=== PATIENT | female | born 1945 | race Caucasian/White ===

== ENCOUNTER → 2019-02-15 13:53 | Outpatient (CLI) | payer MEDICARE, OTHER, SELFPAY ==
--- NOTE | 2019-02-15 | DI.US.S_ITS ---
PROCEDURE: US CAROTID DOPPLER BI INDICATIONS: BILATERAL CAROTID ARTERY STENOSIS TECHNIQUE: Color and pulse Doppler interrogation was performed of both carotid systems, with image documentation and velocity measurements. COMPARISON: None. FINDINGS: Stenosis calculations are based on SRU (Society of Radiologists in Ultrasound) criteria. Right side: Brachial blood pressure: 150/86 mm Hg. Common carotid artery peak systolic velocity: 65 cm/sec. Internal carotid artery peak systolic velocity: 77 cm/sec. Internal carotid artery end diastolic velocity: 35 cm/sec. External carotid artery peak systolic velocity: 91 cm/sec. ICA/CCA peak systolic ratio: 1.2. Fraire scale imaging description: Mild scattered plaque. Percent internal carotid artery stenosis: Less than 50%. Vertebral artery: Flow direction is antegrade. Left side: Brachial blood pressure: 137/88 mm Hg. Common carotid artery peak systolic velocity: 61 cm/sec. Internal carotid artery peak systolic velocity: 95 cm/sec. Internal carotid artery end diastolic velocity: 38 cm/sec. External carotid artery peak systolic velocity: 54 cm/sec. ICA/CCA peak systolic ratio: 1.6. Fraire scale imaging description: Moderate scattered plaque. Percent internal carotid artery stenosis: Less than 50% Vertebral artery: Flow direction is antegrade. IMPRESSION: Less than 50% bilateral internal carotid artery stenosis. Dictated by: Dong Bonner [facility] Interpreted: Alicia Ken MD on 02/15/2019 at 16:34 Approved by: Alicia Ken M.D. on 02/15/2019 at 16:50
== END ==
PROVIDERS: Visit Provider Internal Medicine Cardiovascular Disease
DX: I65.23 Occlusion and stenosis of bilateral carotid arteries (principal)
CPT/HCPCS: 93880

== ENCOUNTER → 2020-04-17 10:44 | Outpatient (CLI) | payer MEDICARE, OTHER, SELFPAY ==
[2020-04-17 11:54] LABS: COVID19 -Nasal RAPID Negative (Negative)
== END ==
PROVIDERS: PCP Nurse Practitioner Family; Referring Provider Internal Medicine; Visit Provider Internal Medicine
DX: Z11.59 Encounter for screening for other viral diseases (principal)
CPT/HCPCS: 87635; C9803

== ENCOUNTER → 2020-04-17 12:39 | Outpatient (CLI) | payer MEDICARE, OTHER, SELFPAY ==
--- NOTE | 2020-04-21 08:14 | P.PFT.S_ITS ---
Pulmonary Function Test Referral & Results Date Patient Seen: 04/17/20 Requesting provider: Katia Daugherty Results: The spirometry demonstrates an FVC of 3.17 L which is 107% of predicted. The FEV1 was measured at 2.34 L which is 106% of predicted. The FEV1/FVC ratio was 74 which is 98% of predicted. Following the administration of bronchodilator there was 15% improvement in FEV1 and a 90% improvement in FEF 25-75%. Lung volumes show an SVC of 3.11 L which is 108% of predicted. The diffusing capacity was measured at 17.75 which is 69% of predicted. No hemoglobin value was provided, so no correction for potential anemia could be made, if appropriate. The maximum voluntary ventilation was reduced Interpretation: This study demonstrates probably normal spirometry. There is a notable im provement in FEV1 and FEF 25-75% after bronchodilator but overall spirometry should be considered normal Diffusing capacity is minimally reduced as above unless patient is anemic Clinical correlation suggested
== END ==
PROVIDERS: PCP Nurse Practitioner Family; Referring Provider Internal Medicine Cardiovascular Disease; Visit Provider Internal Medicine Cardiovascular Disease
DX: R06.02 Shortness of breath (principal); J98.8 Other specified respiratory disorders; Z87.891 Personal history of nicotine dependence; I77.89 Other specified disorders of arteries and arterioles; Z11.59 Encounter for screening for other viral diseases
CPT/HCPCS: 87635; 93306; 94060; 94726; 94729; C9803

== ENCOUNTER → 2020-04-17 14:46 | Outpatient (CLI) | payer MEDICARE, OTHER, SELFPAY ==
--- NOTE | 2020-04-17 | DI.ECHO.S_ITS ---
[place] +---------+ [facility] +---------+ : : [address] [place] : : : : [id number] : : : : Phone: [phone]+ Echocardiogram Report + + :Name: LEANN GREEN Study Date: 04/17/2020 Height: 65 in : :[facility] Weight: 152 lb : : Gender: Female BSA: 1.8 m2 : :: 1945 Age: 74 yrs BP: 162/85 mmHg: :Reason For Study: SOB : : Performed By: Harshil Quinteros : :Referring: LIZZIE SYED : + + Interpretation Summary The left ventricle is normal in size. The ejection fraction is estimated to be 55-60%. Compared to the prior exam, the left ventricular function is improved. The right ventricle is normal in size and function. No significant valvular pathology seen. The ascending aorta is mildly enlarged. There has been no significant change since the previous study. Procedure: A two-dimensional transthoracic echocardiogram with color flow and Doppler was performed. The study quality was technically good. Comparison is made with the echocardiogram of 04/23/13. The patient was in normal sinus rhythm during the exam. The patient had frequent PVCs during the exam. The patient had occasional PACs during the exam. Left Ventricle: The left ventricle is normal in size. There is normal left ventricular wall thickness. There is no thrombus. The ejection fraction is estimated to be 55-60%. Compared to the prior exam, the left ventricular function is improved. There is proximal mid posteriolateral wall hypokinesis. There is apical lateral wall hypokinesis. There is mid anterolateral wall hypokinesis. Compared to the prior exam, the left ventricular wall motion has not changed. MV E/A: 1.0 Med Peak E' David: 3.6 cm/sec E/E' med: 21.6. Right Ventricle: The right ventricle is normal in size and function. Atria: The left atrium is mildly dilated. The right atrium is normal in size. The interatrial septum grossly appears intact with no obvious evidence for an atrial septal defect. Mitral Valve: The mitral valve is normal in structure and function. There is trace mitral regurgitation. Aortic Valve: The aortic valve is trileaflet. The aortic valve opens well. There is no aortic valve stenosis. No aortic regurgitation is present. Tricuspid Valve: The tricuspid valve is normal in structure and function. There is trace tricuspid regurgitation. The right ventricular systolic pressure is estimated to be at least 32 mmHg based on an estimated right atrial pressure of 3 mm Hg. Pulmonic Valve: The pulmonic valve leaflets are thin and pliable; valve motion is normal. There is trace pulmonic regurgitation. Great Vessels: The aortic root is normal size. The ascending aorta is mildly enlarged. There has been no significant change since the previous study. The pulmonary artery is normal size. The IVC is of normal diameter and collapses greater than 50% with a sniff. This suggests a low right atrial pressure of 3 mm Hg. Pericardium/ Pleura There is no pericardial effusion. There is no pleural effusion. MMode/2D Measurements & Calculations LVIDd: 5.5 cm LVOT diam: 1.9 cm LVIDs: 3.7 cm Ao root diam: 2.4 cm FS: 33.3 % asc Aorta Diam: 3.8 cm EPSS: 0.68 cm Ao Arch Diam (Prox Trans): 2.7 cm IVSd: 0.96 cm LVPWd: 0.90 cm LV mac. diameter/BSA (cm/m^2): 3.1 LV sys. diameter/BSA (cm/m^2): 2.1 LA dimension: 3.8 cm RA long axis: 4.2 cm LA A2 area: 20.6 cm2 RA area: 15.0 cm2 LA A4 area: 21.9 cm2 RA vol: 45.7 ml LA length (vol): 6.2 cm RA : 25.9 ml/m2 LA vol: 62.3 ml IVC diam: 1.6 cm LA vol index: 35.4 ml/m2 TAPSE: 2.5 cm Doppler Measurements & Calculations Ao V2 max: 199.7 cm/sec LVOT Max David: 128.0 cm/sec Ao V2 mean: 136.1 cm/sec LV V1 max P.6 mmHg Ao max P.9 mmHg LV V1 VTI: 29.2 cm Ao mean P.3 mmHg KAILA(I,D): 2.0 cm2 Ao V2 VTI: 39.9 cm KAILA(V,D): 1.8 cm2 sev ratio: 0.73 KAILA indexed to BSA (cm^2/m^2): 1.2 MV E max david: 77.4 cm/sec TR max david: 269.9 cm/sec MV A max david: 75.1 cm/sec TR max P.1 mmHg MV E/A: 1.0 PA V2 max: 91.8 cm/sec Med Peak E' David: 3.6 cm/sec PA V2 mean: 71.1 cm/sec E/E' med: 21.6 PA mean P.1 mmHg Lat Peak E' David: 4.9 cm/sec PA pr(Accel): 32.8 mmHg E/E' lat: 15.6 E/e' average: 18.6 MV dec time: 0.21 sec SV(LVOT): 81.8 ml Reading Physician:11:55 AM
== END ==
PROVIDERS: PCP Nurse Practitioner Family; Referring Provider Nurse Practitioner Family; Visit Provider Internal Medicine Cardiovascular Disease
DX: I77.89 Other specified disorders of arteries and arterioles (principal); R06.02 Shortness of breath; Z11.59 Encounter for screening for other viral diseases
CPT/HCPCS: 87635; 93306; C9803

== ENCOUNTER → 2021-09-17 14:12 | Outpatient (CLI) | payer MEDICARE, OTHER, SELFPAY ==
--- NOTE | 2021-09-17 14:15 | DI.ECHO.S_ITS ---
[place] +---------+ [facility] +---------+ : : [address] [place] : : : : [id number] : : : : Phone: [phone]+ Echocardiogram Report + + :Name: LEANN GREEN Study Date: 09/17/2021 Height: 64 in : :[facility] ReadingLocation: Weight: 147 lb : : Gender: Female BSA: 1.7 m2 : :: 1945 Age: 76 yrs BP: 152/96 mmHg: :Reason For Study: Aortic, Ascending Aneurysm : :Ordering Physician: YAHAIRA, : :LIZZIE Performed By: Leland Gross : :Referring: LIZZIE SYED : + + Interpretation Summary The left ventricle is normal in size. Left ventricular systolic function is normal. Left ventricular ejection fraction is estimated to be 60 +/- 5%. Previous LV ejection fraction 55 to 60%. In some of the apical views, there is a hypokinesis of apical lateral wall however overall no significant wall motion abnormalities seen. Previously seen base to mid posterior lateral wall abnormalities have improved. The right ventricle is normal in size and function. No significant valvular abnormalities seen. The IVC is of normal diameter and collapses greater than 50% with a sniff. This suggests a low right atrial pressure of 3 mm Hg. The ascending aorta is mildly enlarged. 3.8 cm in diameter. Previously it was 3.8 cm as well. Procedure: A two-dimensional transthoracic echocardiogram with color flow and Doppler was performed. The study quality was technically difficult. Comparison is made with the echocardiogram of 04/17/2020. The patient was in normal sinus rhythm during the exam. Left Ventricle: The left ventricle is normal in size. There is normal left ventricular wall thickness. There is no thrombus. A false chord is noted (normal variant). Left ventricular systolic function is normal. Left ventricular ejection fraction is estimated to be 60 +/- 5%. In some of the apical views, there is a hypokinesis of apical lateral wall however overall no significant wall motion abnormality seen. Previously seen base to mid posterior lateral wall abnormalities have improved. MV E/A: 0.79 Med Peak E' David: 4.1 cm/sec E/E' med: 15.8. Right Ventricle: The right ventricle is normal in size and function. Atria: The left atrial size is normal. The left atrium has mildly decreased in size since the prior echo exam. Right atrial size is normal. The interatrial septum grossly appears intact with no obvious evidence for an atrial septal defect. Mitral Valve: The mitral valve is normal in structure and function. There is trace mitral regurgitation. Aortic Valve: The aortic valve is normal in structure and function. The aortic valve is trileaflet. There is no aortic valve stenosis. No aortic regurgitation is present. Tricuspid Valve: The tricuspid valve is normal in structure and function. Pulmonary artery pressures cannot be estimated because of the lack of a measurable TR jet velocity. There is trace tricuspid regurgitation. Pulmonic Valve: The pulmonic valve is normal in structure and function. There is a trace or physiologic amount of pulmonic regurgitation. Great Vessels: The aortic root is normal size. The ascending aorta is mildly enlarged. The IVC is of normal diameter and collapses greater than 50% with a sniff. This suggests a low right atrial pressure of 3 mm Hg. Pericardium/ Pleura There is no pericardial effusion. There is no pleural effusion. MMode/2D Measurements & Calculations LVIDd: 5.1 cm LVOT diam: 1.7 cm LVIDs: 3.5 cm Ao root diam: 2.5 cm FS: 30.8 % asc Aorta Diam: 3.7 cm IVSd: 1.0 cm LVPWd: 1.0 cm LV mac. diameter/BSA (cm/m^2): 3.0 LV sys. diameter/BSA (cm/m^2): 2.0 LA A4 area: 18.2 cm2 RA long axis: 4.9 cm LA length (vol): 5.7 cm RA area: 14.4 cm2 RA vol: 35.6 ml RA : 20.8 ml/m2 TAPSE: 2.8 cm Doppler Measurements & Calculations Ao V2 max: 170.2 cm/sec LVOT Max David: 106.6 cm/sec Ao V2 mean: 112.4 cm/sec LV V1 max P.5 mmHg Ao max P.6 mmHg LV V1 VTI: 23.5 cm Ao mean P.9 mmHg KAILA(I,D): 1.6 cm2 Ao V2 VTI: 33.4 cm KAILA(V,D): 1.4 cm2 sev ratio: 0.70 KAILA indexed to BSA (cm^2/m^2): 0.93 MV E max david: 65.0 cm/sec SV(LVOT): 53.4 ml MV A max david: 82.0 cm/sec MV E/A: 0.79 Med Peak E' David: 4.1 cm/sec E/E' med: 15.8 Lat Peak E' David: 12.5 cm/sec E/E' lat: 5.2 E/e' average: 10.5 MV dec time: 0.23 sec Reading Physician:06:43 PM
== END ==
PROVIDERS: PCP Specialist; Referring Provider Internal Medicine Cardiovascular Disease; Visit Provider Internal Medicine Cardiovascular Disease
DX: I77.810 Thoracic aortic ectasia (principal); I77.89 Other specified disorders of arteries and arterioles
CPT/HCPCS: 93306

== ENCOUNTER → 2024-04-05 11:08 | Outpatient (CLI) | payer MEDICARE, OTHER, SELFPAY ==
--- NOTE | 2024-04-05 11:11 | DI.US.S_ITS ---
PROCEDURE: US CAROTID DOPPLER BI INDICATIONS: BILAT CAROTID ARTERY STENOSIS / SOB TECHNIQUE: Color and pulse Doppler interrogation was performed of both carotid systems, with image documentation and velocity measurements. COMPARISON: US, US CAROTID DOPPLER BI, 02/15/2019, 14:40. FINDINGS: Stenosis calculations are based on SRU (Society of Radiologists in Ultrasound) criteria. The flow velocities and the arterial waveforms are normal within both carotid arterial systems. Atherosclerotic plaque is seen on both sides. The estimated degree of internal carotid artery stenosis is less than 50%. Antegrade flow is confirmed within both vertebral arteries. IMPRESSION: No hemodynamically significant stenosis is seen. Atherosclerotic plaque is noted bilaterally. Similar to prior. Dictated by: Scooter Aly M.D. on 04/05/2024 at 11:36 Approved by: Scooter Aly M.D. on 04/05/2024 at 11:37
--- NOTE | 2024-04-05 11:11 | DI.ECHO.S_ITS ---
[place] +---------+ Hospital : : [address] : : [place] : : [id number] : : Phone: [phone] Echocardiogram Report + + :Name: LEANN GREEN Study Date: 04/05/2024 Height: 64 in : :[facility] ReadingLocation: Weight: 147 lb : : Gender: Female BSA: 1.7 m2 : :: 1945 Age: 78 yrs BP: 140/87 mmHg: :Reason For Study: BILATERAL CAROTID ARTERY STENOSIS, SHORTNESS : :OF BREATH : :Ordering Physician: YAHAIRA, : :LIZZIE Performed By: Sukh Jackson : :Referring: LIZZIE SYED : + + Interpretation Summary The left ventricle is normal in size. The ejection fraction is estimated to be 50-55%. There has been no significant change in LVEF since the previous exam. Mid anterolateral wall and mid inferolateral wall are severely hypokinetic. No significant change from the previous study. The right ventricle is normal in size and function. There is mild tricuspid regurgitation. The right ventricular systolic pressure is estimated to be at least 38 mmHg based on an estimated right atrial pressure of 3 mm Hg. The ascending aorta is mildly enlarged. 4.0 cm in diameter. Previously 3.8 cm. Procedure: A two-dimensional transthoracic echocardiogram with color flow and Doppler was performed. The study quality was technically good. Comparison is made with the echocardiogram of 10/18/2023. The patient was in normal sinus rhythm during the exam. The patient had occasional PVCs during the exam. Left Ventricle: The left ventricle is normal in size. Left ventricular wall thickness is mildly increased. There is no thrombus. The ejection fraction is estimated to be 50-55%. There has been no significant change since the previous exam. Mid anterolateral wall and mid inferolateral wall are severely hypokinetic. No significant change from the previous study. MV E/A: 0.64 Med Peak E' David: 3.3 cm/sec E/E' med: 16.6. Right Ventricle: The right ventricle is normal in size and function. Atria: The left atrium is mildly dilated. The left atrium has mildly increased in size since the prior echo exam. The right atrium is borderline dilated. There is no Doppler evidence for an atrial septal defect. Mitral Valve: There is mild mitral annular calcification. There is trace mitral regurgitation. Aortic Valve: The aortic valve is trileaflet. The aortic valve opens well. There is no aortic valve stenosis. No aortic regurgitation is present. Tricuspid Valve: The tricuspid valve is normal. The right ventricular systolic pressure is estimated to be at least 38 mmHg based on an estimated right atrial pressure of 3 mm Hg. There is mild tricuspid regurgitation. Pulmonic Valve: The pulmonic valve is normal in structure and function. There is no pulmonic valvular regurgitation. Great Vessels: The aortic root is normal size. The ascending aorta is mildly enlarged. The pulmonary artery is normal size. The IVC is of normal diameter and collapses greater than 50% with a sniff. This suggests a low right atrial pressure of 3 mm Hg. Pericardium/ Pleura There is no pericardial effusion. There is no pleural effusion. MMode/2D Measurements & Calculations LVIDd: 4.8 cm LVOT diam: 1.8 cm LVIDs: 3.5 cm Ao root diam: 2.6 cm FS: 27.6 % asc Aorta Diam: 4.0 cm EPSS: 0.62 cm Ao Arch Diam (Prox Trans): 2.4 cm IVSd: 1.2 cm LVPWd: 1.2 cm LV mac. diameter/BSA (cm/m^2): 2.8 LV sys. diameter/BSA (cm/m^2): 2.0 LA A2 area: 25.4 cm2 RA long axis: 4.5 cm LA A4 area: 19.4 cm2 RA area: 15.4 cm2 LA length (vol): 5.8 cm RA vol: 44.5 ml LA vol: 71.7 ml RA : 25.9 ml/m2 LA vol index: 41.8 ml/m2 IVC diam: 1.8 cm RVD1 (basal): 3.2 cm RVD2 (mid): 2.8 cm TAPSE: 2.5 cm Doppler Measurements & Calculations Ao V2 max: 199.0 cm/sec LVOT Max David: 134.1 cm/sec Ao V2 mean: 137.9 cm/sec LV V1 max P.2 mmHg Ao max P.8 mmHg LV V1 VTI: 31.4 cm Ao mean P.6 mmHg KAILA(I,D): 2.0 cm2 Ao V2 VTI: 41.5 cm KAILA(V,D): 1.8 cm2 sev ratio: 0.76 KAILA indexed to BSA (cm^2/m^2): 1.2 MV E max david: 55.0 cm/sec TR max david: 297.0 cm/sec MV A max david: 86.1 cm/sec TR max P.3 mmHg MV E/A: 0.64 PA V2 max: 118.6 cm/sec Med Peak E' David: 3.3 cm/sec PA V2 mean: 79.6 cm/sec E/E' med: 16.6 PA mean P.0 mmHg Lat Peak E' David: 3.8 cm/sec PA pr(Accel): 39.6 mmHg E/E' lat: 14.5 E/e' average: 15.6 MV dec time: 0.25 sec SV(LVOT): 83.2 ml Reading Physician:05:18 PM
== END ==
PROVIDERS: PCP Specialist; Referring Provider Internal Medicine Cardiovascular Disease; Visit Provider Internal Medicine Cardiovascular Disease
DX: I65.23 Occlusion and stenosis of bilateral carotid arteries (principal); I08.1 Rheumatic disorders of both mitral and tricuspid valves; I77.89 Other specified disorders of arteries and arterioles; R06.02 Shortness of breath
CPT/HCPCS: 93306; 93880

== ENCOUNTER → 2024-09-18 12:51 | Outpatient (CLI) | payer MEDICARE, OTHER, SELFPAY | PROVIDERS: PCP Specialist; Referring Provider Nurse Practitioner; Visit Provider Nurse Practitioner | DX: R06.09 Other forms of dyspnea (principal); Z87.891 Personal history of nicotine dependence; R94.2 Abnormal results of pulmonary function studies | CPT/HCPCS: 94060; 94726; 94729 ==

== ENCOUNTER → 2024-12-13 12:06 | Outpatient (CLI) | payer MEDICARE, OTHER, SELFPAY ==
--- NOTE | 2024-12-13 12:07 | DI.ECHO.S_ITS ---
[place] +---------+ Hospital : : [address] [place] : : [id number] : : Phone: [phone] Echocardiogram Report + + :Name: LEANN GREEN Study Date: 12/13/2024 Height: 64 in : :[facility] ReadingLocation: Weight: 145 lb : : Gender: Female BSA: 1.7 m2 : :: 1945 Age: 79 yrs BP: 148/79 mmHg: :Reason For Study: DYPSNEA ON EXERTION : :Ordering Physician: BOOM, : :SHREYAS Lafleur Performed By: Sukh Jackson : :Referring: SHREYAS NUR : + + Interpretation Summary The left ventricle is normal in size. The ejection fraction is estimated to be 55-60%. Mid anterolateral wall and mid inferolateral wall are severely hypokinetic. No significant change from the previous study. The right ventricle is normal in size and function. No significant valvular pathology seen Previously mild TR and PASP 38 mmHg. In the study trivial TR and PASP 28.3 mmHg. The ascending aorta is mildly enlarged. 4.0 cm in diameter. Unchanged from the previous study. Procedure: A two-dimensional transthoracic echocardiogram with color flow and Doppler was performed. The study quality was technically good. Comparison is made with the echocardiogram of 04/05/2024. The patient had occasional PACs during the exam. The patient was in normal sinus rhythm during the exam. Left Ventricle: The left ventricle is normal in size. Left ventricular wall thickness is mildly increased. There is no ventricular septal defect visualized. There is no thrombus. The ejection fraction is estimated to be 55- 60%. Mid anterolateral wall and mid inferolateral wall are severely hypokinetic. No significant change from the previous study. Diastolic parameters suggest a relaxation abnormality of the left ventricle, consistent with probable normal filling pressures. Right Ventricle: The right ventricle is normal in size and function. Atria: The left atrium is mildly dilated. There has been no significant change since the previous study. Right atrial size is normal. There is no Doppler evidence for an interatrial shunt. Mitral Valve: The mitral valve leaflets appear mildly thickened. There is mild mitral annular calcification. There is trace mitral regurgitation. Aortic Valve: The aortic valve is trileaflet. The aortic valve opens well. The aortic valve is mildly calcified. There is no aortic valve stenosis. No aortic regurgitation is present. Tricuspid Valve: The tricuspid valve leaflets are thin and pliable. There is trace tricuspid regurgitation. The right ventricular systolic pressure is estimated to be at least 28.3 mmHg based on an estimated right atrial pressure of 3 mm Hg. Pulmonic Valve: The pulmonic valve is not well seen, but is grossly normal. There is no pulmonic valvular regurgitation. Great Vessels: The aortic root is normal size. The ascending aorta is mildly enlarged. The pulmonary artery is normal size. The IVC is of normal diameter and collapses greater than 50% with a sniff. This suggests a low right atrial pressure of 3 mm Hg. Pericardium/ Pleura There is no pericardial effusion. There is no pleural effusion. MMode/2D Measurements & Calculations LVIDd: 4.5 cm LVOT diam: 1.9 cm LVIDs: 3.1 cm Ao root diam: 2.7 cm FS: 31.3 % asc Aorta Diam: 4.0 cm EPSS: 0.61 cm Ao Arch Diam (Prox Trans): 2.0 cm IVSd: 1.2 cm LVPWd: 1.2 cm LV mac. diameter/BSA (cm/m^2): 2.7 LV sys. diameter/BSA (cm/m^2): 1.8 LA A2 area: 14.1 cm2 RA long axis: 4.1 cm LA A4 area: 21.1 cm2 RA area: 10.0 cm2 LA length (vol): 6.1 cm RA vol: 20.6 ml LA vol: 41.3 ml RA : 12.1 ml/m2 LA vol index: 24.2 ml/m2 IVC diam: 1.5 cm RVD1 (basal): 3.1 cm RVD2 (mid): 2.6 cm TAPSE: 2.5 cm Doppler Measurements & Calculations Ao V2 max: 171.9 cm/sec LVOT Max David: 130.9 cm/sec Ao V2 mean: 130.5 cm/sec LV V1 max P.9 mmHg Ao max P.8 mmHg LV V1 VTI: 26.5 cm Ao mean P.2 mmHg KAILA(I,D): 2.0 cm2 Ao V2 VTI: 36.2 cm KAILA(V,D): 2.1 cm2 sev ratio: 0.73 KAILA indexed to BSA (cm^2/m^2): 1.2 MV E max david: 58.8 cm/sec TR max david: 251.3 cm/sec MV A max david: 65.0 cm/sec TR max P.3 mmHg MV E/A: 0.90 PA V2 max: 118.1 cm/sec Med Peak E' David: 5.1 cm/sec PA V2 mean: 86.3 cm/sec E/E' med: 11.5 PA mean P.2 mmHg Lat Peak E' David: 4.8 cm/sec PA pr(Accel): 51.6 mmHg E/E' lat: 12.1 E/e' average: 11.8 MV dec time: 0.20 sec SV(LVOT): 71.5 ml Reading Physician:05:32 PM
== END ==
PROVIDERS: PCP Specialist; Referring Provider Nurse Practitioner; Visit Provider Nurse Practitioner
DX: I34.81 Nonrheumatic mitral (valve) annulus calcification (principal); I77.89 Other specified disorders of arteries and arterioles; R06.09 Other forms of dyspnea; R92.8 Other abnormal and inconclusive findings on diagnostic imaging of breast
CPT/HCPCS: 93306; 99214